=== PATIENT | female | born 1950 | race American Indian/Alaskan Native ===

== ENCOUNTER 2018-06-27 07:03 | Day surgery (SDC) | payer MEDICARE ==
[~2018-06-27 07:03] MED LIST: LACTATED RINGERS 1,000 ML IV SCH; VANCOMYCIN/NS 1 GM/250 ML 1 GM/250 ML BAG IV NR
[2018-06-27] MEDS ORDERED: RIFADIN ONE (07:04)
[2018-06-27] MEDS ORDERED: XYLOCAINE 1%/ EPI 1:100,000 INFILTRATI ONE (07:04)
[2018-06-27] MEDS ORDERED: HEPARIN 10,000 UNITS/10 ML ONE ×2 (07:04→10:21)
[2018-06-27] MEDS ORDERED: NACL 0.9% 500 ML 500 ML ONE (07:04)
[2018-06-27] MEDS ORDERED: SODIUM BICARBONATE ONE (07:04)
[2018-06-27] MEDS ORDERED: MARCAINE-EPI 0.5%-1:200,000 INFILTRATI ONE ×3 (07:04→10:37)
[2018-06-27] MEDS ORDERED: GELFOAM TP ONE ×2 (07:04→08:43)
[2018-06-27] MEDS ORDERED: THROMBIN (BOVINE) TP ONE (07:04)
[2018-06-27] MEDS ORDERED: NACL ONE (07:05)
--- NOTE | 2018-06-27 08:21 | Anesthesia Day of Surgery ---
Anesthesia Day of Surgery - Day of Surgery Patient Examined: Yes Patient H&P Reviewed: Yes Patient is NPO: Yes
--- NOTE | 2018-06-27 08:25 | Anesthesia Consultation ---
Anesthesia Consult and Med Hx Date of service: 06/27/18 - Airway Anesthetic Teeth Evaluation: Dentures (upper and lower) ROM Head & Neck: Adequate Mental/Hyoid Distance: Adequate Mallampati Class: Class I Intubation Access Assessment: Probably Good - Pulmonary Exam CTA: Yes - Cardiac Exam Cardiac Exam: RRR - Pre-Operative Health Status ASA Pre-Surgery Classification: ASA3 Proposed Anesthetic Plan: General - Pre-Anesthesia Comment Pre-Anesthesia Comments: EF 50-55%, mild pulm. HTN, mild LVH - Pulmonary Hx Smoking: Yes (Past hx) - Cardiovascular System Hx Hypertension: Yes (h/o CHF) Hx Coronary Artery Disease: Yes Hx Cardia Arrhythmia: Yes (Afib) - Central Nervous System Hx Psychiatric Problems: No - Endocrine Hx Renal Disease: Yes Hx End Stage Renal Disease: Yes (T, Th, F. Dialysed yesterday) Hx Non-Insulin Dependent Diabetes: Yes - Other Systems Hx Cancer: No Hx Obesity: Yes
[2018-06-27] MEDS ORDERED: NITROGLYCERIN SYRINGE 0 ML ONE (08:58)
[2018-06-27] MEDS ORDERED: PROTAMINE SULFATE ONE (08:58)
[2018-06-27] MEDS ORDERED: DILAUDID IV PRN (09:00)
[2018-06-27] MEDS ORDERED: NACL 0.9% 1000 ML 1,000 ML IV SCH (09:00)
[2018-06-27] MEDS ORDERED: ZOFRAN IV PRN (09:00)
[2018-06-27] MEDS ORDERED: XYLOCAINE MPF 2% ONE (09:06)
[2018-06-27] MEDS ORDERED: SUBLIMAZE ONE (09:06)
[2018-06-27] MEDS ORDERED: DIPRIVAN 10 MG/ML IV ONE (09:07)
[2018-06-27] MEDS ORDERED: NACL 0.9% IR ONE ×2 (10:45→10:47)
[2018-06-27] MEDS ORDERED: HEPARIN 10,000 UNITS/10 ML 2,000 UNIT in NACL 0.9% 500 ML 500 ML IR ONE (10:46)
[2018-06-27] MEDS ORDERED: HEPARIN IR ONE (10:47)
[2018-06-27] MEDS ORDERED: RIFADIN IR ONE (10:47)
[2018-06-27] MEDS ORDERED: ZOFRAN ONE (11:26)
--- NOTE | 2018-06-27 11:26 | Short Stay Summary ---
Short Stay Documentation Date of service: 06/27/18 - History H&P: obtained from office - Allergies and Medications Current Medications: Allergies cefaclor [From Ceclor] Allergy (Verified 06/25/18 08:25) Itching Penicillins Allergy (Verified 06/25/18 08:25) Itching, swelling ramipril [From Altace] Allergy (Verified 06/25/18 08:25) Itching Home Medications Medication Instructions Recorded Confirmed Last Taken Type Apixaban [Eliquis] 5 mg PO DAILY 06/25/18 06/25/18 06/26/18 20:00 History Calcium Acetate [Phoslo] 1 cap PO DAILY 06/25/18 06/25/18 06/26/18 20:00 History Carvedilol 25 mg PO BID 06/25/18 06/27/18 06/26/18 20:00 History NIFEdipine XL [Procardia Xl] 90 mg PO DAILY 06/25/18 06/25/18 06/26/18 20:00 History hydrALAZINE [Apresoline TAB] 50 mg PO BID 06/25/18 06/25/18 06/26/18 20:00 History B Complex 11/Folic/C/Biot/Zinc 1 each PO QDAY 06/27/18 06/27/18 06/26/18 History [Dialyvite with Zinc Tablet] Active Medications Hydromorphone HCl (Dilaudid) 0.5 mg IV Q10MIN PRN PRN Reason: Pain , Severe (7-10) Stop: 06/27/18 15:00 Lactated Ringer's (Lactated Ringers) 1,000 mls @ 42 mls/hr IV DIRECT DEEPA Vancomycin HCl (Vancomycin/Ns 1 Gm/250 Ml) 1 gm in 250 mls @ 166.667 mls/hr IV PREOP NR; Protocol Stop: 06/27/18 23:59 Last Admin: 06/27/18 08:45 Dose: 166.667 mls/hr Sodium Chloride (Nacl 0.9% 1000 Ml) 1,000 mls @ 42 mls/hr IV DIRECT DEEPA Last Admin: 06/27/18 08:45 Dose: 42 mls/hr Ondansetron HCl (Zofran) 4 mg IV ONCE PRN PRN Reason: Nausea And Vomiting Stop: 06/27/18 16:00 - Brief post op/procedure progress note Date of procedure: 06/27/18 Pre-op diagnosis: FAILIN AVG LUE Post-op diagnosis: same Procedure: REPLACEMENT OF LUE AVG WITH 7MM ACCUSEAL GRAFT Anesthesia: GETA, local (1/2% MARCAINE W EPI) Findings: EXCELLENT THRILL AT END OF CASE, 2+ LEFT RADIAL PULSE Surgeon: LINDSEY DUFF Assembler Seat: MYNOR SIMMONS Estimated blood loss: 50-100ml Pathology: none Condition: stable - Hospital course Hospital course: BENIGN - Disposition Condition at discharge: Good Disposition: DC-01 TO HOME OR SELFCARE Short Stay Discharge Plan Activity: advance as tolerated Diet: advance as tolerated Wound: per your surgeon's advice Follow up with: LINDSEY DUFF MD [Staff Physician] - 7 Days Prescriptions: HYDROcodone/APAP 5-325 [Eros 5/325] 1 each PO Q6HR PRN #30 tablet PRN Reason: Pain
--- NOTE | 2018-06-27 11:32 | Operative Report ---
Operative Report Operative Report: Date of procedure: 06/27/2018 Pre-operative diagnosis: Failing arteriovenous graft left upper extremity Post-operative diagnosis: Same Procedure name(s): Replacement of left upper extremity arteriovenous graft with 7 mm AcuSeal graft Surgeon: Steve Reynoso MD Explosive Expert: Dr. Fernanda Mcpherson DO Anesthesia: Gen. with local supplementation using half percent Marcaine with epinephrine EBL: 50 mL Operative indication: Patient is a 68-year-old woman with end-stage renal failure and a failing arteriovenous graft in her left upper extremity. 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 She presents now for replacement of her graft. Findings: At the end of the procedure, there was an excellent thrill in the arteriovenous graft and an easily palpable left radial pulse. Procedure: The patient was placed on the table in the supine position. She was given appropriate anesthesia. The area over her left arm was prepped with a ChloraPrep solution and draped in the usual sterile fashion. Real-time ultrasound was used to identify the arterial and venous anastomoses of the existing graft. Incision sites were chosen and infiltrated with half percent Marcaine with epinephrine. A linear incision was made over the existing graft at the site of the arterial anastomosis and dissection was carried out to identify the graft. It was surrounded with a vessel loop. An incision was made near the venous anastomosis and dissection was carried out to identify the venous side of the graft. This was surrounded with a vessel loop as well. A subcutaneous tunnel was made between the 2 incisions around the existing graft using a Sunita-Wick tunneler with a 10 mm head. A new graft was then tunneled through the tunnel. The tunnel was infiltrated with half percent Marcaine with epinephrine. The patient was then heparinized with 2000 units of intravenous heparin. The existing graft was divided. An end to end anastomosis was created between the 7 mm portion of the graft and the existing bovine graft. 5-0 Prolene was used. The anastomosis was completed. On the venous side, the bovine graft was divided and beveled. A 7 mm portion of the graft was anastomosed in an end-to- end fashion using 5-0 Prolene. The new graft was flushed and then remove any air or debris. The venous anastomosis is completed. Flow was started into the graft with the development of an immediate and excellent thrill along the entire body of the graft. Meticulous hemostasis was obtained. The arterial side of the old bovine graft was oversewn with 3-0 Vicryl along the now unperfused portion. Closure was done with 3-0 Vicryl on the subcutaneous tissue and 4-0 subcuticular PDS. The skin was closed with 4-0 Monocryl. Sterile dressings were applied. Sponge, needle, and instrument counts were reported as correct. Patient tolerated the procedure well and was taken from the operating room to the recovery room in stable condition with an easily palpable thrill in the graft and an easily palpable left radial pulse.
[2018-06-27 12:48] VITALS: BP 131/63
== END 2018-06-27 13:26 | disposition home or self-care (01) ==
LOC: OR 07:03
PROVIDERS: ATTEND Surgery Vascular Surgery
DX: T82.898A Other specified complication of vascular prosthetic devices, implants and grafts, initial encounter (principal); I13.2 Hypertensive heart and chronic kidney disease with heart failure and with stage 5 chronic kidney disease, or end stage renal disease; E11.22 Type 2 diabetes mellitus with diabetic chronic kidney disease; I50.9 Heart failure, unspecified; N18.6 End stage renal disease; D72.829 Elevated white blood cell count, unspecified; M19.90 Unspecified osteoarthritis, unspecified site; F32.9 Major depressive disorder, single episode, unspecified; E66.9 Obesity, unspecified; Z68.37 Body mass index [BMI] 37.0-37.9, adult; Z90.49 Acquired absence of other specified parts of digestive tract; Z98.41 Cataract extraction status, right eye; Z98.42 Cataract extraction status, left eye; Z91.81 History of falling; Z98.890 Other specified postprocedural states; Z88.0 Allergy status to penicillin; Z88.8 Allergy status to other drugs, medicaments and biological substances; Z90.710 Acquired absence of both cervix and uterus; Z99.2 Dependence on renal dialysis; Z79.899 Other long term (current) drug therapy; Z87.891 Personal history of nicotine dependence; Y83.8 Other surgical procedures as the cause of abnormal reaction of the patient, or of later complication, without mention of misadventure at the time of the procedure
CPT/HCPCS: 36832; 82803; 82962; 88302; A4649; J1644; J2405; J2704; J3010; J3370; J3490; J7030; J7040; J7050; C1768; J2720